=== PATIENT | male | born 1990 | race Caucasian/White ===

== ENCOUNTER 2023-01-31 17:35 | Emergency (ER) | payer SELFPAY ==
[2023-01-31 17:40] VITALS: BP 130/75; PULSE 114; RESP 20; TEMP 36.4; O2SAT 100
--- NOTE | 2023-01-31 18:33 | PC.NURSE ---
patient left without seeing a provider
== END 2023-01-31 18:56 | disposition left against medical advice (07) ==
DX: G40.909 Epilepsy, unspecified, not intractable, without status epilepticus (principal)
CPT/HCPCS: 99199

== ENCOUNTER 2023-01-31 19:22 | Emergency (ER) | payer SELFPAY ==
--- NOTE | ~2023-01-31 | XR_ITS ---
EXAM: XR shoulder LT min 2V DATE: 01/31/2023 20:26 HISTORY: shoulder pain AFTER SEIZURE EARLIER THIS AFTERNOON . COMPARISON: None available. FINDINGS: Normal mineralization. Acute appearing crescentic mildly displaced fracture fragment along the anterior aspect of the humeral head. No lytic or blastic lesion. Joint spaces are the AC joint i s aligned. Mild posterior displacement of the humeral head relative to the glenoid. No erosion or per iosteal change. Soft tissues within normal limits. IMPRESSION: Acute-appearing crescentic anterior humeral head fracture with anteroinferior displacement of the fra cture fragment, likely from posterior dislocation. Mild posterior displacement of the humeral head relative to the glenoid, probably representing sublux ation rather than persistent dislocation. Hill-Sachs humeral deformity suggestive of prior anterior dislocation. Reviewed, dictated and finalized at location K. IMPRESSION: Acute-appearing crescentic anterior humeral head fracture with anteroinferior d isplacement of the fracture fragment, likely from posterior dislocation. Mild posterior displacement of the humeral head relative to the glenoid, probab ly representing subluxation rather than persistent dislocation. Hill-Sachs humeral deformity suggestive of prior anterior dislocation.
--- NOTE | ~2023-01-31 | CT_ITS ---
EXAMINATION: CT brain wo con DATE: 01/31/2023 20:54 INDICATION: seizure . TECHNIQUE: Computed tomography (CT) of the head was performed without intravenous contrast. The mA wa s adjusted according to patient size. Iterative reconstruction technique was employed. The dose-lengt h product was 605.33 mGy-cm. COMPARISON: None. FINDINGS: No acute intracranial hemorrhage or extra-axial fluid collection. No hydrocephalus, mass, or herniation. No acute ischemic infarct. Unremarkable dural venous sinus attenuation. No acute osseous abnormality. The aerated spaces are clear. IMPRESSION: No acute intracranial process. Reviewed, dictated and finalized at location K.
[2023-01-31 19:26] VITALS: BP 145/90; PULSE 83; RESP 20; TEMP 36.8; O2SAT 100
--- NOTE | 2023-01-31 19:37 | ECG_ITS ---
Measurements Intervals [place] Rate: 83 P: 80 IN: 128 QRS: 99 QRSD: 98 T: 62 QT: 369 QTc: 435 Interpretive Statements SINUS RHYTHM WITH SINUS ARRHYTHMIA POSSIBLE LEFT ATRIAL ENLARGEMENT [-0.1mV P WAVE IN V1/V2] BORDERLINE RIGHT AXIS DEVIATION [QRS AXIS > 90] NO PREVIOUS ECG AVAILABLE FOR COMPARISON Electronically Signed On 01-31-2023 20:38:16 CDT by Arin Pichardo M.D.
[2023-01-31 19:47] VITALS: O2SAT 98
[2023-01-31 20:00] VITALS: BP 149/92; PULSE 86; PULSE 88; RESP 17; O2SAT 97
--- NOTE | 2023-01-31 20:17 | ED.GENADULT ---
HPI - General Adult General Chief complaint: Seizure Stated complaint: seizure, shoulder injury Time Seen by Provider: 01/31/23 19:59 History of Present Illness HPI narrative: 32-year-old male traveling from [place] to [place] presents to the emergency department for evaluation of a seizure. Patient had his first seizure on 01/09. Patient had a second seizure today. Patient initially presented to the ED for evaluation of a suspected left shoulder dislocation and patient ended up leaving A. While patient was picking up a sling for his shoulder he had a second seizure. Related Data Allergies Allergy/AdvReac Type Severity Reaction Status Date / Time No Known Allergies Allergy Verified 01/31/23 19:40 Review of Systems Review of Systems: All systems reviewed & are unremarkable except as noted in HPI and below Exam Narrative: APPEARANCE: Well appearing, no pain, no distress, well-nourished. HEAD: normocephalic, atraumatic. EYES: PERRLA/EOMI, conjunctivae clear. NOSE: Normal no drainage EARS:TMS clear with good light reflex. THROAT: Pharynx clear, no exudate. NECK: Supple. No adenopathy, no masses. RESPIRATORY: Airway patent, respirations nonlabored. Clear to auscultation bilaterally, no rales, rhonchi, wheezing. CARDIOVASCULAR: Regular rate and rhythm without murmurs rubs or gallops. ABDOMINAL: Soft, nontender, nondistended, normal bowel sounds MUSCULOSKELETAL: Left arm is in a sling with no deformity of the left shoulder NEURO: Alert. Cranial nerves II through XII intact. Grossly intact SKIN: Warm, dry. Normal Color Course Course Emergency Course: 32-year-old male presented ED for evaluation of seizure. Patient had his third seizure ever in his second seizure today. Keppra was ordered for the patient but he declined. Head CT was ordered and showed no acute abnormality. Shoulder x-ray showed possible subluxation and humeral head injury. Patient was placed in a shoulder immobilizer encouraged of close follow-up with orthopedics. Patient was offered admission but patient declined. Patient states he is going to travel back to [place]. Patient was encouraged of close follow-up with his neurologist and orthopedic physician Vital Signs Vital signs: Vital Signs Temperature 98.2 F 01/31/23 19:26 Pulse Rate 83 01/31/23 19:26 Respiratory Rate 20 01/31/23 19:26 Blood Pressure 145/90 H 01/31/23 19:26 Pulse Oximetry 100 01/31/23 19:26 Oxygen Delivery Room Air 01/31/23 19:26 Temperature 98.2 F 01/31/23 19:26 Pulse Rate 86 01/31/23 20:00 Respiratory Rate 17 01/31/23 20:00 Blood Pressure 149/92 H 01/31/23 20:00 Pulse Oximetry 100 01/31/23 20:46 Oxygen Delivery Room Air 01/31/23 20:46 Medical Decision Making Differential Diagnosis Differential Diagnosis: Seizure, shoulder dislocation, shoulder fracture, intracranial abnormality, subdural hematoma Vital Signs Vital Signs: Vital Signs Temperature 98.2 F 01/31/23 19:26 Pulse Rate 83 01/31/23 19:26 Respiratory Rate 20 01/31/23 19:26 Blood Pressure 145/90 H 01/31/23 19:26 Pulse Oximetry 100 01/31/23 19:26 Oxygen Delivery Room Air 01/31/23 19:26 Temperature 98.2 F 01/31/23 19:26 Pulse Rate 86 01/31/23 20:00 Respiratory Rate 17 01/31/23 20:00 Blood Pressure 149/92 H 01/31/23 20:00 Pulse Oximetry 100 01/31/23 20:46 Oxygen Delivery Room Air 01/31/23 20:46 Lab Data Lab results reviewed: Yes I reviewed the patient's lab results. 01/31/23 20:41 01/31/23 20:41 Labs: Lab Results 01/31/23 Range/Units 20:41 WBC 13.0 H (4.5-10.0) K/mm3 RBC 4.81 (4.6-6.20) M/mm3 Hgb 14.6 (14.0-18.0) g/dL Hct 43.4 (42.0-52.0) % MCV 90.2 (80-100) fl MCH 30.4 (26-34) pg MCHC 33.6 (32-36) g/dl RDW 12.7 (11.5-14.5) % Plt Count 276 (150-375) k/mm3 MPV 9.4 (7.4-10.4) fl Immature Gran % (Auto) 0.3 (0-0.5) % Neut % (Auto) 78.9 H (4
[2023-01-31] MEDS: SODIUM CHLORIDE 0.9% IV 1,000 ML 999 ML IV CONT (20:36)
[2023-01-31 20:46] VITALS: O2SAT 100
[2023-01-31 20:47] LABS: Basophils Absolute Auto 0.1 K/mm3 (0.0-0.1); Basophils Percent Auto 0.5 % (0.2-1.2); Eosinophils Percent Auto 0.3 % (0-4.4); Hematocrit 43.4 % (42.0-52.0); Hemoglobin 14.6 g/dL (14.0-18.0); Immature Granulocyte Absolute 0.04 K/mm3 (0.00-0.031); Immature Granulocyte Percent A 0.3 % (0-0.5); Lymphocytes Absolute Auto 1.36 K/mm3 (0.9-3.2); Lymphocytes Percent Auto 10.5 % (18.3-44.2); Mean Corpuscular HGB Conc 33.6 g/dl (32-36); Mean Corpuscular Hemoglobin 30.4 pg (26-34); Mean Corpuscular Volume 90.2 fl (80-100); Mean Platelet Volume 9.4 fl (7.4-10.4); Monocytes Absolute Auto 1.2 K/mm3 (0.1-0.6); Monocytes Percent Auto 9.5 % (2.6-8.5); Neutrophils Absolute Auto 10.3 K/mm3 (1.3-6.7); Neutrophils Percent Auto 78.9 % (45.5-73.1); Platelet Count Result 276 k/mm3 (150-375); Red Blood Count 4.81 M/mm3 (4.6-6.20); Red Cell Distribution Width 12.7 % (11.5-14.5)
[2023-01-31 20:57] LABS: Alanine Aminotransferase 18 U/L (6-50); Albumin Level 4.8 g/dL (3.5-5.1); Alkaline Phosphatase 91 U/L (38-126); Anion Gap 8 mmol/L (8-16); Aspartate Amino Transferase 49 U/L (17-59); Blood Urea Nitrogen 17 mg/dL (9-20); Calcium 9.4 mg/dL (8.4-10.2); Carbon Dioxide 25 mmol/L (22-30); Chloride 103 mmol/L (98-107); Estimated CRCL calculation 108 ml/min; Estimated Glomerular Filt Rate > 60; Glucose 117 mg/dL (65-110); Magnesium 2.7 mg/dL (1.6-2.3); Potassium 3.8 mmol/L (3.4-5.0); Sodium 136 mmol/L (137-145)
[2023-01-31 21:41] LABS: Thyroid Stimulating Hormone Reflex 0.565 uIU/mL (0.465-4.68)
== END 2023-01-31 21:44 | disposition home or self-care (01) ==
PROVIDERS: Emergency Provider Emergency Medicine
DX: G40.909 Epilepsy, unspecified, not intractable, without status epilepticus (principal); S43.015A Anterior dislocation of left humerus, initial encounter; X50.0XXA Overexertion from strenuous movement or load, initial encounter
CPT/HCPCS: 36415; 70450; 73030; 80053; 83735; 84443; 85025; 93005; 96360; 99284; J7030

== ENCOUNTER 2023-02-01 04:30 | Emergency (ER) | payer SELFPAY ==
[2023-02-01 04:31] VITALS: BP 119/81; PULSE 88; RESP 16; TEMP 36.8; O2SAT 100
--- NOTE | 2023-02-01 05:21 | ED.UPPEXIN ---
HPI - Extremity Injury (Upper) General Chief Complaint: Extremity Injury, Upper Stated Complaint: L shoulder pain, hx fx Time Seen by Provider: 02/01/23 05:04 Source: patient Limitations: no limitations History of Present Illness HPI narrative: Patient is a 32-year-old male present to the emergency department requesting pain medication. Patient states he was seen in the emergency department last night for seizures and a injury to his left shoulder and he ended up leaving AGAINST MEDICAL ADVICE and still does not want any admission or management of his left shoulder injury, notes that he has been wearing his sling as directed, states that he was not given any medications to take for pain and [id number] medications are not helping. Patient states that he is leaving at [address] back to [place] where he will see his neurologist in addition to follow-up with an orthopedic surgeon. Patient does not want any other work-up to be performed at this time and states he only wants pain medications and to leave. Patient denies numbness, weakness, fever, headache, confusion. Patient denies any further injuries since leaving the emergency department recently and denies any further seizures. Patient denies any use of medications on a regular basis. Related Data Allergies Allergy/AdvReac Type Severity Reaction Status Date / Time No Known Allergies Allergy Verified 01/31/23 19:40 Review of Systems Review of Systems: A 10 system review of systems was completed on the patient and is negative except for what is stated in the HPI. Nursing and ancillary documentation was reviewed. PMFSH Comments At time of signature, I have reviewed and agree with nursing past medical, surgical, social and family history unless otherwise noted. Please see the nursing chart for further information. There is no relevant family history pertinent to the presenting complaint. Exam Narrative: CONST: No acute distress. Well nourished. HENMT: Head is normocephalic and atraumatic. Moist mucous membranes. No posterior oropharynx erythema. EYES: No conjunctival icterus, injection, or pallor. PERRL. NECK: No meningeal signs. RESP: Able to speak in full sentences. Normal respiratory effort. CTAB. CARDIO: Regular rate. Regular rhythm. 2+ DP and radial pulses bilaterally. GI: Nondistended. No tenderness to palpation. Soft. : No CVA tenderness to palpation. SKIN: No rashes or lesions noted on exposed skin. NEURO: Oriented x3. Moves all extremities. EXTREM: No pedal edema. Wearing a sling on his left upper extremity with mild tenderness to palpation over the left shoulder diffusely. No palpable deformities of the left shoulder. Neurovascularly intact distally left upper extremity. PSYCH: Normal affect. Course Vital Signs Vital signs: Vital Signs Temperature 98.3 F 02/01/23 04:31 Pulse Rate 88 02/01/23 04:31 Respiratory Rate 16 02/01/23 04:31 Blood Pressure 119/81 02/01/23 04:31 Pulse Oximetry 100 02/01/23 04:31 Oxygen Delivery Room Air 02/01/23 04:31 Temperature 98.3 F 02/01/23 04:31 Pulse Rate 88 02/01/23 04:31 Respiratory Rate 16 02/01/23 04:31 Blood Pressure 119/81 02/01/23 04:31 Pulse Oximetry 100 02/01/23 04:31 Oxygen Delivery Room Air 02/01/23 04:31 MDM - Extremity Injury (Upper) MDM Narrative Medical decision making narrative: Patient presents with the above complaint. Initial vitals are remarkable for no significant abnormalities. Patient appears in no acute distress. Physical examination notable for left shoulder pain and wearing a sling on his left upper extremity.. Plan discussed: Patient offered admission and further evaluation including labs and to be seen by the neurologist and the orthopedic surgery team here and he is adamant that he does not want any interventions to be performed as he is leaving very soon to go back to [place] where he will have follow-up on all of his issues i
[2023-02-01] MEDS: HYDROcodone/acetaminophen (*CRX) 10-325 MG TABLET 1 TAB PO (05:38)
[2023-02-01] MEDS: IBUPROFEN 600 MG TABLET PO (05:43)
== END 2023-02-01 05:47 | disposition home or self-care (01) ==
PROVIDERS: Emergency Provider Student in an Organized Health Care Education/Training Program
DX: S42.292A Other displaced fracture of upper end of left humerus, initial encounter for closed fracture (principal); X58.XXXA Exposure to other specified factors, initial encounter
CPT/HCPCS: 99283; A9270